=== PATIENT | male | born 1975 | race Caucasian/White ===

== ENCOUNTER 2021-06-10 16:25 | Emergency (ER) | payer SELFPAY ==
--- NOTE | ~2021-06-10 | CT_ITS ---
EXAMINATION: CT chest abdomen pelvis w con DATE: 06/10/2021 18:01 INDICATION: Fall off of the latter. Chest pain, back pain TECHNIQUE: Computed tomography (CT) of the chest, abdomen, and pelvis was performed with 100 cc Omnip aque 350 intravenous contrast. Automated exposure control and iterative reconstruction technique were employed. Exam dose: 1858.14 mGy-cm total exam DLP. COMPARISON: None FINDINGS: CHEST CT: Occasional bilateral calcified pulmonary granulomas. Calcified mediastinal and bilateral hilar nodes. 4 mm right lower lobe nodule (series 4 image 84), possibly a small granuloma. No pulmonary infiltrate or consolidation. Normal size and homogeneous enhancement of the thyroid gland. No thoracic aortic aneurysm or dissecti on. Normal heart size. No hilar or mediastinal mass lesion or lymphadenopathy. ABDOMEN/PELVIS CT: Diffuse hepatic steatosis. No hepatic, splenic, pancreatic, adrenal or renal space-occupying mass les ion is evident. Normal caliber of the abdominal aorta. No intraperitoneal or retroperitoneal or pelvic mass lesion or adenopathy or ascites. The urinary bladder, prostate gland and seminal vesicles are unremarkable. Normal appendix. Minimal diverticulosis of the colon. No CT evidence of diverticulitis. No bowel obstruction, bowel wa ll thickening, pneumatosis or intraperitoneal free air. Small bilateral fat-containing inguinal hernias. Small fat-containing umbilical hernia. Bilateral L5 pars interarticularis defects with associated grade 1 anterolisthesis at L5-S1. No suspicious osteolytic or osteoblastic lesions. IMPRESSION: Bilateral L5 pars interarticularis defects and associated grade 1 anterolisthesis at L5- S1 Reviewed, dictated and finalized at [facility]. Reviewed, dictated and finalized at [facility]. IMPRESSION: Bilateral L5 pars interarticularis defects and associated grade 1 anterolisthesis at L5-S1
--- NOTE | ~2021-06-10 | CT_ITS ---
EXAMINATION: CT brain wo con DATE: 06/10/2021 18:02 INDICATION: Fall off of ladder. Patient struck head. TECHNIQUE: Computed tomography (CT) of the head was performed without intravenous contrast. The mA wa s adjusted according to patient size. Iterative reconstruction technique was employed. Exam dose: 68 1.00 mGy-cm total exam DLP. COMPARISON: None FINDINGS: No intracranial mass lesion or hemorrhage or cerebrovascular accident. No midline shift or mass effect. Normal ventricular size. No subdural or epidural hematoma. No fracture or bone destruction of the cranial vault. Bilateral frontoethmoid soft tissue thickening, patchy opacification of ethmoid air cells bilaterally and prominent mucoperiosteal thickening of the right maxillary and left sphenoid sinuses. The mastoid air cells are normally developed and aerated. No fracture or bone destruction of the cranial vault. IMPRESSION: No significant intracranial abnormality or skull fracture Reviewed, dictated and finalized at [facility] Reviewed, dictated and finalized at [facility].
--- NOTE | ~2021-06-10 | XR_ITS ---
XR shoulder LT min 2V DATE: 06/10/2021 16:52 INDICATION: Fall from ladder. Left shoulder and scapular pain TECHNIQUE: 4 views COMPARISON: None FINDINGS: Old healed fracture deformity of the left third rib posteriorly. No recent fracture or dislocation, periosteal reaction or bone destruction or abnormal soft tissue ca lcification of the left shoulder is detected. No abnormal soft tissue calcification. IMPRESSION: No recent fracture or dislocation Reviewed, dictated and finalized at [facility].
[2021-06-10 16:30] VITALS: BP 125/73; PULSE 109; RESP 18; TEMP 36.6; O2SAT 95
--- NOTE | 2021-06-10 17:17 | ED.FALL ---
HPI - Fall General Chief Complaint: Fall Stated Complaint: fall Time Seen by Provider: 06/10/21 16:50 Source: patient Mode of arrival: ambulatory Limitations: no limitations History of Present Illness HPI Narrative: Patient is a 45-year-old male complaining of left shoulder, left chest wall, left upper back, left foot pain, 8 out of 10, dull, aching, worse with movement falling off a 10 foot ladder. Patient does admit hitting his head on the ground but denies any loss of consciousness. Patient denies any abdominal pain, back pain or any other extremity pain/injury. Patient was able to get up and ambulate after the fall. Related Data Allergies Allergy/AdvReac Type Severity Reaction Status Date / Time No Known Allergies Allergy Verified 06/10/21 17:13 [facility] Social History Social History Gender identity (if verbalized by the patient): Male Exam Const: General: cooperative, healthy appearing, comfortable, no acute distress, well developed, alert and awake; No confusion Orientation/consciousness: oriented to person, oriented to place, oriented to time, patient oriented x3 and No confusion Limitations: no limitations HENMT: Head: normal to inspection, normocephalic and atraumatic Ears: hearing grossly normal bilaterally, TM normal on the right and TM normal on the left General nose exam: Normal external nose present, Normal nares present and No nasal discharge present Face and sinus: normal facial exam Mouth: Yes Normal oral and palatal mucosa present, Yes lip normal, Yes tongue normal and Yes oropharynx normal Throat: posterior oropharynx normal, tonsils normal and uvula midline Eyes: General: appearance normal, both eyes and all related structures Pupils: Equal, round and reactive pupils present EOM: EOMs intact bilaterally Neck: Neck: normal visual inspection, full ROM, no lymphadenopathy and no meningeal signs Chest: Chest palpation & inspection: normal inspection of the chest, no crepitus and tenderness (Midsternal area) Resp: Effort & Inspection: normal respiratory effort, able to speak in complete sentences, no respiratory distress and not tachypneic Auscultation: clear to auscultation bilaterally, no crackles, no rales, no rhonchi and no wheezes Cardio: Rate: regular rate Rhythm: regular rhythm GI: Inspection: normal to inspection GI Palp: No abdominal tenderness, Yes Soft to palpation, No Tenderness to palpation present (GI), No Guarding due to palpation present (GI), No Rigid due to palpation and No Rebound tenderness present Auscultation: normal bowel sounds : General: Yes no CVA tenderness Back/Spine/Pelvis: Back: no CVA tenderness Skin: General skin exam: normal color, no rashes or lesions noted, elasticity normal and turgor normal Neuro: General: oriented to person, oriented to place, oriented to time, patient oriented x3, tone normal, moves all extremities, Normal light touch and pain sensation, no meningeal signs, no focal motor deficits, CN's II-XI intact bilaterally and No confusion Cranial nerves: Yes Equal, round and reactive pupils present Speech: No Abnormal speech present Sensory Exam: No Sensory deficit (Neuro) Extrem: General: normal to inspection and capillary refill normal Other: Negative for any deformity or significant swelling of the left shoulder. Abrasions left shoulder. Pain on palpation of the right shoulder. Pain on motion of the right shoulder. Neurovascular is intact Abrasion calcaneal part of the left foot, neurovascular is intact Psych: Appearance: grossly normal and well kempt Mental Status: mental status grossly normal Speech and movement: Normal speech and movement present Affect: normal affect Attitude: cooperative Thought process: Normal thought process present Thought content: Yes Normal thought content present Insight: Good insight present (Psych) Judgement: Good judgement present (Psych) Course Vital Signs Vital signs: Vital Signs Temperature 36.6 C
[2021-06-10 17:48] LABS: Hematocrit 40.5 % (42.0-52.0); Hemoglobin 13.9 g/dL (14.0-18.0); Mean Corpuscular HGB Conc 34.3 g/dl (32-36); Mean Corpuscular Hemoglobin 31.7 pg (26-34); Mean Corpuscular Volume 92.3 fl (80-100); Mean Platelet Volume 9.1 fl (7.4-10.4); Platelet Count Result 231 k/mm3 (150-375); Red Blood Count 4.39 M/mm3 (4.6-6.20); Red Cell Distribution Width 14.3 % (11.5-14.5); White Blood Count 11.2 K/mm3 (4.5-10.0)
[2021-06-10 17:55] LABS: Estimated CRCL calculation 75 ml/min; Estimated Glomerular Filt Rate 55
[2021-06-10 18:18] LABS: Alanine Aminotransferase 36 U/L (4-50); Albumin Level 4.3 g/dL (3.5-5.1); Alkaline Phosphatase 71 U/L (38-126); Anion Gap 7 mmol/L (8-16); Aspartate Amino Transferase 51 U/L (17-59); Blood Urea Nitrogen 18 mg/dL (9-20); Calcium 9.1 mg/dL (8.4-10.2); Carbon Dioxide 25 mmol/L (22-30); Chloride 106 mmol/L (98-107); Estimated CRCL calculation 87 ml/min; Estimated Glomerular Filt Rate > 60; Glucose 106 mg/dL (65-110); Potassium 4.2 mmol/L (3.4-5.0); Sodium 138 mmol/L (137-145)
[2021-06-10 18:53] LABS: Band Neutrophils Percent 3 % (0-6); Eosinophils Absolute Manual 0.22 K/mm3 (0.02-0.5); Eosinophils Percent Manual 2 % (0-4); Lymphocytes Absolute Manual 2.24 K/mm3 (1.1-4.5); Monocytes Absolute Manual 0.67 K/mm3 (0.1-0.90); Monocytes Percent Manual 6 % (3-9); Neutrophils Absolute Manual 8.06 K/mm3 (1.3-6.7); Neutrophils Percent Manual 69 % (46-73); Total Cells Counted 100
[2021-06-10 18:55] LABS: Platelet Estimate Adequate (Adequate)
[2021-06-10 19:18] VITALS: BP 126/90; PULSE 97; RESP 18; O2SAT 99
== END 2021-06-10 20:09 | disposition home or self-care (01) ==
PROVIDERS: Emergency Provider Emergency Medicine
DX: S20.212A Contusion of left front wall of thorax, initial encounter (principal); S46.912A Strain of unspecified muscle, fascia and tendon at shoulder and upper arm level, left arm, initial encounter; S16.1XXA Strain of muscle, fascia and tendon at neck level, initial encounter; W11.XXXA Fall on and from ladder, initial encounter
CPT/HCPCS: 36415; 70450; 71260; 73030; 74177; 80053; 85025; 99284; Q9967